=== PATIENT | male | born 1975 | race African-American/Black ===

== ENCOUNTER 2021-07-07 23:53 | Emergency (ER) | payer OTHER ==
[2021-07-07 23:58] VITALS: BP 151/80; PULSE 86; RESP 18; TEMP 99.4
[2021-07-08] MEDS ORDERED: ACETAMINOPHEN TAB 325 MG TAB PO STA (00:28)
[2021-07-08] MEDS ORDERED: IBUPROFEN 600 MG TAB PO STA (00:28)
--- NOTE | 2021-07-08 00:28 | ED ---
Recheck HPI - General Chief Complaint: Recheck/Abnormal Lab/Rx Stated Complaint: weakness Time Seen by Provider: 07/08/21 00:05 Source: patient Mode of arrival: ambulatory - History of Present Illness Initial Comments: 45-year-old male patient presents to the emergency department today for evaluation of mild headache and chills. Patient states he has symptoms starting early this morning. States he did receive dose of Issa & Issa vaccine yesterday. Patient states he was concerned his symptoms may be related to the vaccine and wanted to get checked out. He denies any blurred or double vision. Denies nausea or vomiting. Denies any fever or chills. Denies numbness, tearing, weakness to his extremities. Denies any chest pain or shortness of breath. Patient is also requesting a note so he can return to work tonight. - Related Data Allergies Allergy/AdvReac Type Severity Reaction Status Date / Time No Known Allergies Allergy Verified 07/07/21 23:58 Review of Systems ROS Statement: Those systems with pertinent positive or pertinent negative responses have been documented in the HPI. ROS Other: All systems not noted in ROS Statement are negative. Past Medical History Past Medical History: No Reported History History of Any Multi-Drug Resistant Organisms: None Reported Past Surgical History: No Surgical Hx Reported Past Psychological History: No Psychological Hx Reported Smoking Status: Current every day smoker Past Alcohol Use History: None Reported Past Drug Use History: Marijuana General Exam General appearance: alert, in no apparent distress, other (this is a well- developed, well-nourished adult male patient in no acute distress.) Eye exam: Present: normal appearance, PERRL, EOMI. Absent: scleral icterus, conjunctival injection, periorbital swelling ENT exam: Present: normal exam, normal oropharynx, mucous membranes moist Respiratory exam: Present: normal lung sounds bilaterally. Absent: respiratory distress, wheezes, rales, rhonchi, stridor Cardiovascular Exam: Present: regular rate, normal rhythm, normal heart sounds. Absent: systolic murmur, diastolic murmur, rubs, gallop, clicks Neurological exam: Present: alert, oriented X3, CN II-XII intact Psychiatric exam: Present: normal affect, normal mood Skin exam: Present: warm, dry, intact, normal color. Absent: rash Course Vital Signs 07/07/21 23:55 Temperature 99.4 F Pulse Rate 86 Respiratory 18 Rate Blood Pressure 151/80 O2 Sat by Pulse 98 Oximetry Medical Decision Making - Medical Decision Making 45-year-old male patient presents to the emergency department today for evaluation of mild headache and chills. He did receive a dose of the Issa and Issa vaccine yesterday. Physical examination is unremarkable. I did discuss that his symptoms are most likely related to side effects from the vaccine. He also is requesting a work mostly to return to work tonight. He is given note. He'll be discharged follow up with his primary care physician for recheck in 1-2 days. Return parameters were discussed in detail. He verbalizes understanding and agrees with this plan. My attending is Dr. Moore. Disposition Clinical Impression: Headache, Adverse reaction to vaccine Disposition: HOME SELF-CARE Condition: Good Instructions (If sedation given, give patient instructions): Acute Headache (ED) Additional Instructions: Take Tylenol and Motrin as needed for pain. Follow-up with the primary care physician for recheck in 1-2 days. Return for any new, worsening, or concerning symptoms. Is patient prescribed a controlled substance at d/c from ED?: No Referrals: None,Stated [Primary Care Provider] - 1-2 days Time of Disposition: 00:27
== END 2021-07-08 00:43 | disposition home or self-care (01) ==
LOC: EC 23:53
DX: T88.1XXA Other complications following immunization, not elsewhere classified, initial encounter (principal); R51.9 Headache, unspecified; F17.200 Nicotine dependence, unspecified, uncomplicated
CPT/HCPCS: 99283

== ENCOUNTER 2021-07-12 10:23 | Emergency (ER) | payer OTHER ==
[2021-07-12 10:35] VITALS: BP 112/71; PULSE 81; TEMP 98.1
[2021-07-12 10:59] VITALS: RESP 18
--- NOTE | 2021-07-12 11:06 | ED ---
General Adult HPI - General Chief complaint: Upper Respiratory Infection Stated complaint: Cough Time Seen by Provider: 07/12/21 10:36 Source: patient, RN notes reviewed Mode of arrival: ambulatory Limitations: no limitations - History of Present Illness Initial comments: 45-year-old presents emergency Department chief complaint of cough. Patient states started last 24 hours. Patient states his roommate at the [facility] was diagnosed with bronchitis states that he has nonproductive cough. He states that he is a smoker no history of asthma COPD. Denies any chest pain no leg swelling no prior cardiac disease. Denies any back pain no other complaints. States that he felt like he had a fever. - Related Data Previous Rx's Medication Instructions Recorded predniSONE 50 mg PO DAILY #5 tab 07/12/21 Allergies Allergy/AdvReac Type Severity Reaction Status Date / Time No Known Allergies Allergy Verified 07/12/21 10:35 Review of Systems ROS Statement: Those systems with pertinent positive or pertinent negative responses have been documented in the HPI. ROS Other: All systems not noted in ROS Statement are negative. Past Medical History Past Medical History: No Reported History History of Any Multi-Drug Resistant Organisms: None Reported Past Surgical History: No Surgical Hx Reported Past Psychological History: No Psychological Hx Reported Smoking Status: Current every day smoker Past Alcohol Use History: None Reported Past Drug Use History: Marijuana General Exam Limitations: no limitations General appearance: alert, in no apparent distress Head exam: Present: atraumatic, normocephalic, normal inspection Eye exam: Present: normal appearance, PERRL, EOMI. Absent: scleral icterus, conjunctival injection, periorbital swelling ENT exam: Present: normal exam, normal oropharynx, mucous membranes moist Neck exam: Present: normal inspection, full ROM. Absent: tenderness, meningismus, lymphadenopathy Respiratory exam: Present: wheezes. Absent: respiratory distress, rales, rhonchi, stridor Cardiovascular Exam: Present: regular rate, normal rhythm, normal heart sounds. Absent: systolic murmur, diastolic murmur, rubs, gallop, clicks Course Vital Signs 07/12/21 07/12/21 10:32 10:58 Temperature 98.1 F Pulse Rate 81 Respiratory 16 18 Rate Blood Pressure 112/71 O2 Sat by Pulse 98 Oximetry Medical Decision Making - Medical Decision Making 45-year-old male presented for cough congestion. X-ray shows possibly acute bronchitis versus interstitial pneumonitis. Patient symptoms started last 24 hours I ordered and recommend patient have COVID-19 testing patient refused stating had testing 6 days ago.I counseled the patient for smoking cessation for greater than 3 minutes Disposition Clinical Impression: Upper respiratory tract infection Disposition: HOME SELF-CARE Condition: Stable Instructions (If sedation given, give patient instructions): Upper Respiratory Infection (ED) Additional Instructions: Please return to the Emergency Department if symptoms worsen or any other concerns. Prescriptions: predniSONE 50 mg PO DAILY #5 tab Is patient prescribed a controlled substance at d/c from ED?: No Referrals: None,Stated [Primary Care Provider] - 1-2 days
--- NOTE | 2021-07-12 11:23 | XR ---
EXAMINATION TYPE: XR chest 2V DATE OF EXAM: 07/12/2021 COMPARISON: NONE TECHNIQUE: PA and lateral views submitted. HISTORY: Chest pain and coughing FINDINGS: The lungs are clear and there is no pneumothorax, pleural effusion, or focal pneumonia. Heart size normal. No overt failure. Interstitium slightly coarse. IMPRESSION: 1. Correlate for bronchitis or interstitial pneumonitis.
== END 2021-07-12 11:52 | disposition home or self-care (01) ==
LOC: EC 10:23
DX: J06.9 Acute upper respiratory infection, unspecified (principal); F17.200 Nicotine dependence, unspecified, uncomplicated; Z71.6 Tobacco abuse counseling
CPT/HCPCS: 71046; 99283